=== PATIENT | female | born 1990 | race Caucasian/White ===

== ENCOUNTER → 2016-06-15 | Outpatient (CLI) | payer OTHER ==
[~2016-06-15] MED LIST: IBUP-232 PO; OXYC1TAB63 PO; Oxycodone/Acetaminophen PO; PRENCAP6 PO; SENN1TAB PO; TUMS500C CHEW
== END ==
LOC: CLAB 12:31
PROVIDERS: ATTEND Obstetrics & Gynecology
DX: O36.0190 Maternal care for anti-D [Rh] antibodies, unspecified trimester, not applicable or unspecified (principal)
CPT/HCPCS: 36415; 86850; 86900; 86901; 96372; J2790; 90384

== ENCOUNTER 2016-08-09 10:17 | Inpatient (IN) | payer OTHER ==
[~2016-08-09] VITALS: Ht 162.6 cm; Wt 86.2 kg
[~2016-08-09 10:17] MED LIST changes: -IBUP-232 PO; -OXYC1TAB63 PO; -SENN1TAB PO
[2016-08-23] VITALS (23 sets, daily range): BP systolic 100–126; BP diastolic 58–82; PULSE 78–101; RESP 16–19; TEMP 97.2–98.3; O2SAT 96–100
[2016-08-23] MEDS ORDERED: CITRIC ACID-SODIUM CITRATE LIQ 30 ML UDC PO SCH (05:45)
[2016-08-23] MEDS ORDERED: LACTATED RINGER'S 1000 ML IV SCH (05:45)
[2016-08-23] MEDS ORDERED: ceFAZolin 2 GM PREMIX 50 ML IV SCH (05:45)
[2016-08-23] MEDS ORDERED: LACTATED RINGER'S 1000 ML IV ONE (05:45)
[2016-08-23] MEDS ORDERED: ONDANSETRON HCL 4 MG/2 ML VIAL ONE ×2 (06:14→06:43)
[2016-08-23 06:26] LABS: AUTOMATED NEUTROPHIL # 10.4 TH/MM3 (1.8-7.7); BASOPHIL % 0.3 % (0.0-2.0); EOSINOPHIL # 0.2 TH/MM3 (0-0.4); EOSINOPHIL % 1.5 % (0.0-4.0); HEMATOCRIT 34.7 % (35.0-46.0); HEMO FLAGS DIFF FINAL; LYMPH % 24.1 % (9.0-44.0); LYMPHOCYTE # 3.7 TH/MM3 (1.0-4.8); MEAN CELL VOLUME 84.1 FL (80.0-100.0); MEAN CORPUSCULAR HEMOGLOBIN 28.1 PG (27.0-34.0); MEAN CORPUSCULAR HGB CONC 33.4 % (32.0-36.0); MONO % 6.9 % (0.0-8.0); NEUT % 67.2 % (16.0-70.0); PLATELET COUNT 307 TH/MM3 (150-450); RED BLOOD COUNT 4.12 MIL/MM3 (4.00-5.30); RED CELL DISTRIBUTION WIDTH 13.6 % (11.6-17.2); WHITE BLOOD COUNT 15.5 TH/MM3 (4.0-11.0)
[2016-08-23 06:27] LABS: BLOOD, URINE NEG (NEG); GLUCOSE,URINE NEG (NEG); KETONE, URINE NEG (NEG); NITRITE,URINE NEG (NEG); URINE COLOR YELLOW (YELLW/STRAW)
[2016-08-23 06:35] LABS: BACTERIA, URINE MOD /hpf; COMMENT (UR) CULTURE INDICATED; CULTURE IF INDICATED CULTURE INDICATED
[2016-08-23 06:36] LABS: MUCUS URINE FEW /lpf (OCC)
[2016-08-23] MEDS ORDERED: OXYTOCIN 10 UNIT/ML AMP ONE (06:43)
[2016-08-23] MEDS ORDERED: DICLOFENAC SODIUM 37.5 MG/ML VIAL IV PUSH ONE (06:43)
[2016-08-23] MEDS ORDERED: MORPHINE SULFATE PF 5 MG/10 ML VIAL ONE (06:43)
[2016-08-23] MEDS ORDERED: ACETAMINOPHEN 1000 MG/100 ML VIAL IV ONE ×2 (08:15→08:33)
[2016-08-23] MEDS ORDERED: OXYTOCIN 30 UNITS-500ML PREMIX 500 ML IV ONE (08:15)
[2016-08-23] MEDS ORDERED: oxyCODONE/ACETAMINOPHEN 5 MG/325 MG TAB PO PRN (08:15)
[2016-08-23] MEDS ORDERED: SODIUM CHLORIDE 0.9% FLUSH 10 ML FLUSH IV FLUSH PRN (08:15)
[2016-08-23] MEDS ORDERED: ZOLPIDEM TARTRATE 5 MG TAB PO PRN (08:15)
[2016-08-23] MEDS ORDERED: SIMETHICONE 80 MG CHEWABLE TAB PO PRN (08:15)
[2016-08-23] MEDS ORDERED: ONDANSETRON HCL 4 MG/2 ML VIAL IV PUSH PRN (08:15)
[2016-08-23] MEDS ORDERED: LACTATED RINGER'S 1,000 ML BAG IV ONE (08:44)
[2016-08-23] MEDS ORDERED: DEXAMETHASONE SOD PHOS 4 MG/ML VIAL IV ONE (08:44)
[2016-08-23] MEDS: SODIUM CHLORIDE 0.9% FLUSH 10 ML FLUSH IV FLUSH SCH (09:00)
[2016-08-23] MEDS ORDERED: OXYTOCIN 30 UNITS-500ML PREMIX 500 ML ONE (09:37)
--- NOTE | 2016-08-23 09:55 | MP ---
cc: ALINA DEL CASTILLO MD DATE OF SURGERY 08/23/2016 PREOPERATIVE DIAGNOSIS Repeat section, breech presentation. POSTOPERATIVE DIAGNOSIS Repeat section, breech presentation. PROCEDURE Repeat lower segment transverse section via Pfannenstiel skin incision. SURGEON Dr. Del Castillo ANESTHESIA Spinal. FLUIDS 2500 cc crystalloid. ESTIMATED BLOOD LOSS 650 cc. URINE OUTPUT 100 cc clear yellow at the end of the procedure. FINDINGS A live male was delivered breech presentation, Apgars 7 at one minute and 9 at five minutes. weight was 8 pounds, 8 ounces. PROCEDURE The patient was taken to the operating room where spinal anesthesia was found to be adequate. She was then prepped and draped in the normal sterile fashion in the dorsal supine position with a leftward tilt. A Pfannenstiel skin incision was made with a scalpel and carried down to the underlying layer of fascia. The fascia was nicked in the midline and the incision was extended laterally with curved Ozuna scissors. Attention was turned to the inferior aspect of the incision which was grasped with Shanae clamps, elevated and the rectus muscles dissected off sharply. Attention was turned to the superior aspect of the incision which was grasped with Shanae clamps, elevated and the rectus muscles dissected off sharply. The rectus muscles were in the midline. The peritoneum was identified, grasped with pickups, elevated and entered sharply with Metzenbaum scissors. This incision was extended superiorly and inferiorly with good visualization of the bladder. The bladder blade was inserted. The vesicouterine peritoneum was identified, grasped with pickups and entered sharply with Metzenbaum scissors. This incision was extended laterally and the bladder flap created sharply. The lower uterine segment was then incised in a transverse fashion with a scalpel. Clear amniotic fluid was noted. The incision was extended laterally with bandage scissors. The breech was then delivered sacrum anterior. The shoulders were delivered atraumatically. The head was then delivered. The oral and nasopharynx were bulb suctioned with a syringe. The cord was clamped x 2 and cut. The infant was handed off to the awaiting nurse. The placenta was delivered manually. The uterus was cleared of all clots and debris. The uterine incision was repaired in two layers with #1 Vicryl. Hemostasis was assured. The gutters were cleared of all clots and debris. The fascia was repaired in a running fashion with 0 Vicryl. The skin was closed with margarita. Pressure dressing was applied. The sponge, lap, needle and instrument counts were correct x 3. The patient was transferred to the recovery room in stable condition. MD DANIELA Martin/RENETTA /9:09 AM /9:51 AM
[2016-08-23] MEDS ORDERED: EPIDURAL-DO NOT ADMINISTER ANTICOAGULANTS PRN (11:15)
[2016-08-23] MEDS ORDERED: EPIDURAL-DIPHENHYDRAMINE HCL 50 MG CAP PO PRN (11:15)
[2016-08-23] MEDS ORDERED: EPIDURAL-NALOXONE HCL 0.4 MG/ML AMP IV PRN (11:15)
[2016-08-23] MEDS ORDERED: EPIDURAL-NO SYSTEMIC NARCOTICS PRN (11:15)
[2016-08-23] MEDS ORDERED: EPIDURAL-DIPHENHYDRAMINE HCL 50 MG/ML VIAL IV PUSH PRN (11:15)
[2016-08-23] MEDS ORDERED: LACTATED RINGER'S 1000 ML INJ 1,000 ML IV SCH (13:14)
[2016-08-23] MEDS: DICLOFENAC SODIUM 37.5 MG/ML VIAL IV PUSH SCH ×2 (14:00→20:00)
[2016-08-23] MEDS ORDERED: OXYTOCIN 30 UNITS-500ML PREMIX 500 ML IV PRN (18:15)
[2016-08-23] MEDS: oxyCODONE/ACETAMINOPHEN 5 MG/325 MG TAB PO PRN (23:51)
[2016-08-24 00:11] VITALS: BP 108/72; PULSE 74; RESP 18; TEMP 98.2
[2016-08-24] MEDS: DICLOFENAC SODIUM 37.5 MG/ML VIAL IV PUSH SCH (01:52)
[2016-08-24 03:55] VITALS: BP 100/67; PULSE 73; RESP 18; TEMP 98.4
[2016-08-24 05:57] LABS: AUTOMATED NEUTROPHIL # 12.3 TH/MM3 (1.8-7.7); BASOPHIL % 0.1 % (0.0-2.0); EOSINOPHIL # 0.1 TH/MM3 (0-0.4); EOSINOPHIL % 0.4 % (0.0-4.0); HEMATOCRIT 32.5 % (35.0-46.0); HEMO FLAGS DIFF FINAL; LYMPHOCYTE # 3.4 TH/MM3 (1.0-4.8); MEAN CELL VOLUME 84.9 FL (80.0-100.0); MEAN CORPUSCULAR HEMOGLOBIN 27.3 PG (27.0-34.0); MEAN CORPUSCULAR HGB CONC 32.2 % (32.0-36.0); MONO % 7.4 % (0.0-8.0); NEUT % 72.1 % (16.0-70.0); PLATELET COUNT 277 TH/MM3 (150-450); RED BLOOD COUNT 3.82 MIL/MM3 (4.00-5.30); RED CELL DISTRIBUTION WIDTH 14.1 % (11.6-17.2)
[2016-08-24] MEDS: DOCUSATE SODIUM 50 MG/SENNA 8.6 MG TAB PO PRN ×2 (06:29→20:40)
--- NOTE | 2016-08-24 07:47 | HHI.OB ---
Subjective Post Operative Day: 1 Remarks Doing well Objective Vitals/I&O Vital Signs Date Time Temp Pulse Resp B/P Pulse Ox O2 Delivery O2 Flow Rate FiO2 08/24/16 03:55 98.4 73 18 08/24/16 03:55 100/67 08/24/16 00:11 74 18 108/72 08/24/16 00:11 98.2 08/23/16 22:38 16 08/23/16 11:00 97.9 82 16 106/77 08/23/16 10:15 87 18 99 08/23/16 10:10 97.2 08/23/16 09:59 110/72 08/23/16 09:59 89 18 99 08/23/16 09:45 81 17 105/64 99 08/23/16 09:30 83 18 109/61 99 08/23/16 09:15 90 18 109/67 100 08/23/16 09:00 19 99 08/23/16 09:00 85 104/60 08/23/16 08:45 78 18 108/65 99 08/23/16 08:30 100/58 08/23/16 08:29 82 17 96 08/23/16 08:15 98.3 83 18 103/58 96 Result Diagram: 08/24/16 0537 Objective Remarks GENERAL: Well-nourished, well-developed patient. CARDIOVASCULAR: Regular rate and rhythm without murmurs, gallops, or rubs. RESPIRATORY: Breath sounds equal bilaterally. No accessory muscle use. ABDOMEN/GI: Abdomen soft, non-tender, bowel sounds present. bandage dry Fundus: Firm, non-tender at umbilicus. GENITOURINARY: Light to moderate bleeding. EXTREMITIES: No cyanosis or edema, non-tender, without signs of DVT. Medications and IVs Current Medications Medications (Trade) Dose Ordered Sig/Omar Route Start Time Stop Time Status Last Admin (Lr 1000 ml Inj) 1,000 ml @ 100 mls/hr Q10H IV 08/23/16 13:14 08/24/16 09:13 (NS Flush) 2 ml BID IV FLUSH 08/23/16 09:00 (NS Flush) 2 ml UNSCH PRN IV FLUSH 08/23/16 08:15 (Mylicon Chew) 80 mg QID PRN PO 08/23/16 08:15 (Motrin) 600 mg Q6H PRN PO 08/23/16 08:15 (Percocet 5-325 Mg) 1 tab Q4H PRN PO 08/23/16 08:15 08/23/16 23:51 (Percocet 5-325 Mg) 2 tab Q4H PRN PO 08/23/16 08:15 08/24/16 06:30 (Carmina-Colace) 2 tab Q12H PRN PO 08/23/16 08:15 08/24/16 06:29 (Ambien) 5 mg HS PRN PO 08/23/16 08:15 (M-M-R Ii Inj) 0.5 ml ONCE ONCE SQ 08/24/16 16:00 08/24/16 16:01 (Boostrix Inj) 0.5 ml ONCE ONCE IM 08/24/16 16:00 08/24/16 16:01 (Zofran Inj) 4 mg Q6H PRN IV PUSH 08/23/16 08:15 08/23/16 18:01 Miscellaneous Information NO SYSTEMIC NARCOTICS TO BE GIVEN FO... UNSCH PRN .XX 08/23/16 11:15 08/24/16 11:14 (Narcan Inj) 0.4 mg UNSCH PRN IV 08/23/16 11:15 08/24/16 11:14 (Benadryl Inj) 25 mg Q6H PRN IV PUSH 08/23/16 11:15 08/24/16 11:14 (Benadryl) 50 mg Q6H PRN PO 08/23/16 11:15 08/24/16 11:14 Miscellaneous Information ALL NURSING DEPARTMENTS UNSCH PRN .XX 08/23/16 11:15 08/24/16 11:14 Assessment/Plan Assessment and Plan doing well POD 1 plans for second day discharge and to remove margarita in office Beti Sinha MD Aug 24, 2016 07:47
[2016-08-24 08:00] VITALS: BP 106/71; PULSE 80; RESP 16; TEMP 98.1
[2016-08-24] MEDS: IBUPROFEN 600 MG TAB PO PRN ×3 (09:36→20:40)
[2016-08-24] MEDS: oxyCODONE/ACETAMINOPHEN 5 MG/325 MG TAB PO PRN ×3 (10:26→20:45)
[2016-08-24] MEDS ORDERED: DIPHTH/TETANUS/ACEL PERTUSSIS (BOOSTER) 0.5 ML VIAL/PFS IM ONE (16:00)
[2016-08-24] MEDS ORDERED: MEASLES, MUMPS, RUBELLA VACCINE 0.5 ML VIAL SQ ONE (16:00)
[2016-08-24] MEDS: SODIUM CHLORIDE 0.9% FLUSH 10 ML FLUSH IV FLUSH SCH (19:20)
[2016-08-25] MEDS: IBUPROFEN 600 MG TAB PO PRN ×2 (02:40→09:04)
[2016-08-25] MEDS: oxyCODONE/ACETAMINOPHEN 5 MG/325 MG TAB PO PRN ×3 (02:41→13:59)
[2016-08-25 07:40] VITALS: BP 120/79; PULSE 87; RESP 16; TEMP 97.6
--- NOTE | 2016-08-25 12:25 | HHI.OB ---
Subjective Post Operative Day: 2 Remarks POD#2; Stable, doing well Objective Vitals/I&O Vital Signs Date Time Temp Pulse Resp B/P Pulse Ox O2 Delivery O2 Flow Rate FiO2 08/25/16 07:40 97.6 87 16 120/79 Result Diagram: 08/24/16 0537 Objective Remarks GENERAL: Well-nourished, well-developed patient. CARDIOVASCULAR: Regular rate and rhythm without murmurs, gallops, or rubs. RESPIRATORY: Breath sounds equal bilaterally. No accessory muscle use. ABDOMEN/GI: Abdomen soft, non-tender, bowel sounds present. bandage dry Fundus: Firm, non-tender at umbilicus. GENITOURINARY: Light to moderate bleeding. EXTREMITIES: No cyanosis or edema, non-tender, without signs of DVT. Medications and IVs Current Medications Medications (Trade) Dose Ordered Sig/Omar Route Start Time Stop Time Status Last Admin (NS Flush) 2 ml BID IV FLUSH 08/23/16 09:00 (NS Flush) 2 ml UNSCH PRN IV FLUSH 08/23/16 08:15 (Mylicon Chew) 80 mg QID PRN PO 08/23/16 08:15 (Motrin) 600 mg Q6H PRN PO 08/23/16 08:15 08/25/16 09:04 (Percocet 5-325 Mg) 1 tab Q4H PRN PO 08/23/16 08:15 08/25/16 12:16 (Percocet 5-325 Mg) 2 tab Q4H PRN PO 08/23/16 08:15 08/24/16 06:30 (Carmina-Colace) 2 tab Q12H PRN PO 08/23/16 08:15 08/24/16 20:40 (Ambien) 5 mg HS PRN PO 08/23/16 08:15 (Zofran Inj) 4 mg Q6H PRN IV PUSH 08/23/16 08:15 08/23/16 18:01 Assessment/Plan Assessment and Plan doing well POD#2 plans discharge today, will return to office to remove margarita Discharge Planning Routine Attending Attestation seen by Navin Smith MD Aug 25, 2016 12:25
[2016-08-25] MEDS ORDERED: SENN1TAB PO (12:27)
[2016-08-25] MEDS ORDERED: OXYC1TAB63 PO (12:27)
[2016-08-25] MEDS ORDERED: IBUP-232 PO (12:27)
--- NOTE | 2016-08-25 12:28 | HHI.DS ---
Admission Date Aug 23, 2016 at 05:30 Admitting Diagnosis Diagnosis: : Repeat Infant: Male Pt Condition on Discharge: Good Discharge Disposition: Discharge Home Discharge Instructions Diet Instructions: As Tolerated, No Restrictions Activities You Can Perform: Shower Only-No Bath Activities to Avoid: Prolonged Standing, Strenuous Activity, Driving, Sexual Activity Navin Anne MD Aug 25, 2016 12:27
== END 2016-08-25 14:36 | disposition home or self-care (01) | DRG 766 ==
LOC: H2EB 08-23 05:30 → H1EA 08-23 10:37
PROVIDERS: ADMIT Obstetrics & Gynecology; ATTEND Obstetrics & Gynecology
PROC: 10D00Z1 Extraction of Products of Conception, Low, Open Approach (ICD-10-PCS; principal; 2016-08-23)
DX: O34.219 Maternal care for unspecified type scar from previous cesarean delivery (principal); O32.1XX0 Maternal care for breech presentation, not applicable or unspecified; Z37.0 Single live birth; Z3A.39 39 weeks gestation of pregnancy
CPT/HCPCS: 59025; 81001; 85025; 85461; 86850; 86900; 86901; 87086; 90384; J0131; J1100; J1130; J2274; J2405; J2590; J2790; J7120